=== PATIENT | female | born 1995 | race Caucasian/White ===

== ENCOUNTER 2016-11-08 10:55 | Emergency (ER) | payer MEDICAID ==
[~2016-11-08] VITALS: Ht 162.6 cm; Wt 77.1 kg
[2016-11-08 10:59] VITALS: BP 133/82
== END 2016-11-08 13:30 | disposition home or self-care (01) ==
LOC: ER 10:55
DX: S83.91XA Sprain of unspecified site of right knee, initial encounter (principal); W10.0XXA Fall (on)(from) escalator, initial encounter; Y93.89 Activity, other specified; Y99.8 Other external cause status; Y92.89 Other specified places as the place of occurrence of the external cause
CPT/HCPCS: 73562

== ENCOUNTER 2018-06-29 18:50 | Emergency (ER) | payer MEDICAID ==
[~2018-06-29] VITALS: Ht 165.1 cm; Wt 77.1 kg
[2018-06-29 19:20] VITALS: BP 128/78
== END 2018-06-29 21:41 | disposition home or self-care (01) ==
LOC: ER 18:52
DX: S67.22XA Crushing injury of left hand, initial encounter (principal); W55.12XA Struck by horse, initial encounter; Y93.89 Activity, other specified; Y99.8 Other external cause status; Y92.89 Other specified places as the place of occurrence of the external cause
CPT/HCPCS: 73130; 81025

== ENCOUNTER 2020-02-02 09:23 | Emergency (ER) | payer MEDICAID ==
[~2020-02-02] VITALS: Ht 165.1 cm; Wt 77.1 kg
[2020-02-02 09:45] VITALS: BP 126/84
== END 2020-02-02 10:24 | disposition home or self-care (01) ==
LOC: ER 09:23
DX: J02.9 Acute pharyngitis, unspecified (principal)
CPT/HCPCS: 71046